=== PATIENT | male | born 1940 | race Caucasian/White ===

== ENCOUNTER → 2019-07-16 11:55 | Outpatient (CLI) | payer MEDICARE, SELFPAY ==
--- NOTE | ~2019-07-16 | XR_ITS ---
EXAMINATION: XR lumbar spine 2-3V DATE: 07/16/2019 12:15 INDICATION: Low back pain. Sciatica. TECHNIQUE: 3 views of lumbar spine were obtained. COMPARISON: None. FINDINGS: There is 9 degrees levocurvature of lumbar spine. There is 3 mm retrolisthesis of L1 on L2 and L2 on L3. Vertebral body heights are normal. There is severely decreased disc height at L1-L2 and L2-L3, mildly decreased disc height at L3-L4, and moderately decreased disc height at L4-L5. There a re endplate osteophytes at all levels. 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 IMPRESSION: 1. Severe lumbar spondylosis. Reviewed, dictated and finalized at location A. [employer]
== END ==
PROVIDERS: PCP Family Medicine; Visit Provider Family Medicine
DX: M54.30 Sciatica, unspecified side (principal); M47.896 Other spondylosis, lumbar region
CPT/HCPCS: 72100

== ENCOUNTER → 2020-03-17 09:53 | Outpatient (CLI) | payer MEDICARE, SELFPAY ==
--- NOTE | ~2020-03-17 | XR_ITS ---
EXAMINATION: XR cervical spine 4-5V EXAM DATE: 03/17/2020 10:09 INDICATION: Cervical pain. Surgery. TECHNIQUE: Cervical spine frontal, lateral, lateral swimmers, and open-mouth odontoid projections. There is no prior study for comparison. FINDINGS: There is cervical anterior and interbody fusion C3-4. There is 3 mm anterolisthesis C4 on C5 and C5 on C6. There is severe multilevel cervical arthropathy. There is moderate loss of the C6-7 disc heights, mild to moderate at C7-T1 and mild at the other nonfused surgical levels. The odontoid process is intact. The lateral masses of C1 line up with C2. Prevertebral soft tissue and pre-dens s pace are within normal limits. IMPRESSION: 1. Intact C3-4 fusion. 2. Severe arthropathy. 3. Subluxations. Reviewed, dictated and finalized at location A.
== END ==
PROVIDERS: PCP Family Medicine; Visit Provider Family Medicine
DX: M54.2 Cervicalgia (principal); Z98.1 Arthrodesis status
CPT/HCPCS: 72050

== ENCOUNTER 2020-10-09 16:36 | IRF | payer MEDICARE, SELFPAY ==
--- NOTE | 2020-10-09 16:39 | ADMGEN ---
This patient, Lorenzo Clark Jr., was admitted to [facility] Room 230-02. Patient/family oriented to hospital policies and general routines including ID bracelet, bed and alarms, visiting hours, pain management, procedures, bathroom and other care routines, personal items, smoking policy, room service/diet, and visiting hours. Information on how to activate the Rapid Response Team has been discussed. Patient/Family are encouraged to report perceived risks to care and to ask questions if they do not understand what they are told or what they should do.
[2020-10-09 17:00] VITALS: BP 121/50; PULSE 76; RESP 18; TEMP 36.9; O2SAT 94; BMI 28.0
--- NOTE | 2020-10-09 17:27 | WPDREHABHP ---
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 Patient has a long standing history of greater than 10 years of ongoing neck and segments reflect a myelomalacia. EMG and nerve conduction studies were consistent with left C5 and C6 radiculopathy. On 10/05/2020 the patient underwent an a Cipro all to C6 posterior lumbar cervical fusion by Dr. Gavin Gamino. Postoperatively patient had complications of hypertension, acute postoperative pain, weakness, headache, BPH, constipation, urinary retention and acute blood loss anemia. Urology was consulted for the urinary to retention and Flomax dose was increased. Patient's surgical drains were removed removed on 10/07/2020. Patient was given a hard cervical collar. No DVT prophylaxis will be ordered per hospitalist at the referring hospital. COVID the patient has not traveled outside the [place] are had contact with someone who is ill that his travel outside the [place] in the past 21 days. Patient has not traveled to an area of the [place] that is experiencing known transmission of the Coronavirus and has not had close personal contact with anyone that has. The patient does not have a fever. Patient is not experiencing lower respiratory illness symptoms. COVID test negative for 10/09/2020. Therapy was initiated at the acute care facility and the patient transferred to us from [facility] from 10-09-2020[] FALLS OR SURGERIES: The patient has had major surgeries in the 100 days prior to admission . Patient underwent cervical surgery a septal to C6 posterior lumbar cervical fusion. They had [no] falls in the past year. They had [no] falls with injury in the past year. PRIOR LEVEL OF FUNCTION: Eating was [INDEPENDENT] Oral Care was [INDEPENDENT] Toileting Hygiene was [INDEPENDENT] Shower/Bathing was [INDEPENDENT] Upper Body Dressing was [INDEPENDENT] Lower Body Dressing was [INDEPENDENT] Donning/Fair Lawn Footwear was [INDEPENDENT] Rolling Left and Right was [INDEPENDENT] Sit to Lying was [INDEPENDENT] Lying to Sitting was [INDEPENDENT] Sit to Stand was [INDEPENDENT] Bed to Chair Transfers was [INDEPENDENT] Toilet Transfers was [INDEPENDENT] Walking was [INDEPENDENT] [>500 feet] with [NO DEVICE] Wheelchair Mobility was [NOT APPLICABLE PRIOR TO ADMISSION] Stairs were [INDEPENDENT] CURRENT LEVEL OF FUNCTION: Eating was partial to moderate assist Oral Care was supervision or touching assist Toileting Hygiene was partial to moderate assistance Shower/Bathing was partial to moderate assistance Upper Body Dressing was partial to moderate assistance Lower Body Dressing was partial to moderate ass Donning/Fair Lawn Footwear was ist partial to moderate assist Rolling Left and Right was supervision or touching Sit to Lying was assistance supervision or touching assistance Lying to Sitting was Flick to moderate assist Sit to Stand was partial to moderate assist Bed to Chair Transfers were partial to moderate Toilet Transfers were assist partial to moderate veinta Walking was t 150 ft with a roller walker with partial to moderate assistance Wheelchair Mobility was not tested Stairs were not GOALS: Our therapists will evaluate the patient and establish the goals. However, upon pre-admission screening, the expected goals were to be [INDEPENDENT] with self-care, [I
[2020-10-09] MEDS: GABAPENTIN 300 MG CAPSULE 900 MG PO (18:33)
[2020-10-09] MEDS: BETHANECHOL CHLORIDE 10 MG TABLET 30 MG PO (18:33)
[2020-10-09] MEDS: HYDROcodone/acetaminophen (*CRX) 5-325 MG TABLET 1 TAB PO ×2 (18:34→23:42)
[2020-10-09 18:39] VITALS: PULSE 76; RESP 18; O2SAT 94
[2020-10-09 20:00] VITALS: PULSE 70; RESP 18; O2SAT 99
[2020-10-09] MEDS: SENNA/DOCUSATE SODIUM TABLET 1 TAB PO (20:00)
[2020-10-09] MEDS: CYCLOBENZAPRINE HCL 10 MG TABLET PO (20:01)
[2020-10-09] MEDS: TAMSULOSIN HCL 0.4 MG CAPSULE 0.8 MG PO (20:01)
[2020-10-09] MEDS: ROSUVASTATIN 10 MG TABLET PO (20:01)
[2020-10-09 20:18] VITALS: BP 113/52; PULSE 70; RESP 18; TEMP 37.4; O2SAT 99
--- NOTE | 2020-10-10 04:27 | PC.NURSE ---
notified provider of the patient's increasing temperature. given no new orders at this time continuing to monitor.
[2020-10-10 04:59] LABS: Basophils Absolute Auto 0.1 K/mm3 (0.0-0.1); Basophils Percent Auto 0.6 % (0.2-1.2); Eosinophils Absolute Auto 0.2 K/mm3 (0-0.3); Eosinophils Percent Auto 2.2 % (0-4.4); Hematocrit 32.2 % (42.0-52.0); Hemoglobin 11.3 g/dL (14.0-18.0); Immature Granulocyte Absolute 0.03 K/mm3 (0.00-0.031); Immature Granulocyte Percent A 0.4 % (0-0.5); Lymphocytes Absolute Auto 1.14 K/mm3 (0.9-3.2); Lymphocytes Percent Auto 14.8 % (18.3-44.2); Mean Corpuscular HGB Conc 35.1 g/dl (32-36); Mean Corpuscular Hemoglobin 31.7 pg (26-34); Mean Corpuscular Volume 90.4 fl (80-100); Mean Platelet Volume 8.5 fl (7.4-10.4); Monocytes Absolute Auto 0.6 K/mm3 (0.1-0.6); Monocytes Percent Auto 8.1 % (2.6-8.5); Neutrophils Absolute Auto 5.7 K/mm3 (1.3-6.7); Neutrophils Percent Auto 73.9 % (45.5-73.1); Platelet Count Result 265 k/mm3 (150-375); Red Blood Count 3.56 M/mm3 (4.6-6.20); Red Cell Distribution Width 12.4 % (11.5-14.5); White Blood Count 7.7 K/mm3 (4.5-10.0)
[2020-10-10 05:00] VITALS: BP 137/57; PULSE 61; RESP 18; TEMP 37.1; O2SAT 96
[2020-10-10 05:17] LABS: Alanine Aminotransferase 27 U/L (4-50); Albumin Level 3.4 g/dL (3.5-5.1); Alkaline Phosphatase 68 U/L (38-126); Anion Gap 3 mmol/L (8-16); Aspartate Amino Transferase 58 U/L (17-59); Bilirubin,Total 0.2 mg/dL (0.2-1.3); Blood Urea Nitrogen 17 mg/dL (9-20); Calcium 7.9 mg/dL (8.4-10.2); Carbon Dioxide 32 mmol/L (22-30); Chloride 100 mmol/L (98-107); Estimated CRCL calculation 54 ml/min; Estimated Glomerular Filt Rate > 60; Glucose 156 mg/dL (75-110); Potassium 4.3 mmol/L (3.4-5.0); Sodium 135 mmol/L (137-145)
--- NOTE | 2020-10-10 07:23 | PC.NURSE ---
pt complains of severe pain throughout his body, notified the doctor. An order of PRN Ultram was prescribed. called pharmacy for clarification on Ultram interaction with tramadol. Pharmacist Royal told to continue with order and to monitor pt for side effects.
[2020-10-10] MEDS: MULTIVITAMINS THERAPEUTIC TAB (*BKC) 1 TABLET PO (08:20)
[2020-10-10] MEDS: HYDROcodone/acetaminophen (*CRX) 5-325 MG TABLET 2 TAB PO ×3 (08:20→21:34)
[2020-10-10] MEDS: GABAPENTIN 300 MG CAPSULE 900 MG PO ×3 (08:21→17:13)
[2020-10-10] MEDS: CYCLOBENZAPRINE HCL 10 MG TABLET PO ×3 (08:22→20:17)
[2020-10-10] MEDS: FENOFIBRATE 160 MG TABLET PO (08:22)
[2020-10-10] MEDS: SENNA/DOCUSATE SODIUM TABLET 1 TAB PO ×2 (08:22→20:17)
[2020-10-10] MEDS: FINASTERIDE 5 MG TABLET PO (08:23)
[2020-10-10] MEDS: allopurinoL 300 MG TABLET PO (08:23)
[2020-10-10] MEDS: PANTOPRAZOLE 40 MG TABLET PO ×2 (08:23→17:13)
[2020-10-10] MEDS: BETHANECHOL CHLORIDE 10 MG TABLET 30 MG PO ×3 (08:23→17:13)
--- NOTE | 2020-10-10 09:01 | WPDNEURORHBP ---
Subjective Date/time seen: 10/10/20 09:01 Interval history: Cervical cord compression with spinal cord compression The patient is a 80-year-old male with past medical history of anxiety, arthritis, cervical stenosis of the spinal canal, gout, hyperlipidemia, hypertension, and urinary retention who presented to [facility] on 10/05/2020 with chronic neck pain. Patient has a long standing history of greater than 10 years of ongoing neck and segments reflect a myelomalacia. EMG and nerve conduction studies were consistent with left C5 and C6 radiculopathy. On 10/05/2020 the patient underwent an occipital to C6 posterior lumbar cervical fusion by Dr. Gavin Gamino. Postoperatively patient had complications of hypertension, acute postoperative pain, weakness, headache, BPH, constipation, urinary retention and acute blood loss anemia. Urology was consulted for the urinary retention and Flomax dose was increased. Patient's surgical drains were removed on 10/07/2020. Patient was given a hard cervical collar and a bone stimulator No DVT prophylaxis will be ordered per hospitalist at the referring hospital. Patient is seen in bed this morning complaining of severe pain. Patient tends to flail his arms and legs during these events. I have instructed the patient that this movement will only aggravate his pain. Patient needs maximum verbal cues for deep breathing activities and relaxation techniques. Patient will be given [place] 2 tabs of 5/325 with Flexeril 10 mg before a.m. and p.m. therapies and at bedtime.Patient states that he wishes he would . It is noted that he has made statements like this prior to his surgery. When examiner has asked that if he wishes to harm himself he states NO. He would just like the pain under better control. is present on the phone and just states that she hopes the pain will decrease. Review of Systems Review of Systems: All systems reviewed & are unremarkable except as noted in HPI and below Exam Narrative: Exam Narrative: Patient is seen in bed and appears to be anxious and in pain. Anxiety appears high with moaning and flailing of arms. Patient needs max assist to calm down. At times, patient has flailing of the arms and legs. Patient cannot accurately describe what is happening. It would appear to examiner that these movements would only exacerbate the pain. is on the phone. Patient may be experiencing spasm which elicits pain. Head is normocephalic there are eduardo present to the left temporal area. Extraocular muscles are intact. Neck is within a hard collar. Collar was not removed at time of exam. Heart rhythm is regular. Lungs are clear to auscultation. Abdomen is soft nontender . Patient is able to move BUEs with 4/5 strength except proximal shoulder limited ROM is noted. Fine motor dexterity is limited. Sensation is intact to proprioception and light touch. Bilateral lower extremity strength are 5/5. Deep tendon reflexes are brisk throughout. After leaving the room with patient in tears, I have returned 10 minutes later to his room to find the patient jovial and calm without any suggestions of being in pain. Objective Data Vital Signs Vital Signs: Vital Signs - 24 hr 10/09/20 17:00 10/09/20 18:39 10/09/20 20:00 Temperature 36.9 C Pulse Rate 76 76 70 Respiratory Rate 18 18 18 Blood Pressure 121/50 L Pulse Oximetry 94 94 99 10/09/20 20:18 10/10/20 05:00 Temperature 37.4 C 37.1 C Pulse Rate 70 61 Respiratory Rate 18 18 Blood Pressure 113/52 L 137/57 L Pulse Oximetry 99 96 Intake/Output Intake/Output: Intake & Output 10/07/20 10/08/20 10/09/20 10/10/20 23:59 23:59 23:59 23:59 Output Total 425 Balance -425 Meds/Results Medications: Active Medications Generic Name Dose Route Start Last Admin Trade Name Freq PRN Reason Stop Dose Admin Hydrocodone Bitart/Acetaminophen 1 tab 10/09/20 17:18 10/09/20 23:42 Hydrocodone/Abel
[2020-10-10] MEDS: lisinopriL 2.5 MG TABLET PO (12:26)
[2020-10-10 14:00] VITALS: BP 139/63; PULSE 64; RESP 20; TEMP 36.7; O2SAT 98
[2020-10-10] MEDS: TAMSULOSIN HCL 0.4 MG CAPSULE 0.8 MG PO (20:17)
[2020-10-10] MEDS: ROSUVASTATIN 10 MG TABLET PO (20:17)
[2020-10-10 20:19] VITALS: BP 123/45; PULSE 57; RESP 22; TEMP 37; O2SAT 99
[2020-10-11] MEDS: HYDROcodone/acetaminophen (*CRX) 5-325 MG TABLET 1 TAB PO (03:33)
[2020-10-11 05:32] VITALS: BP 130/43; PULSE 54; RESP 20; TEMP 36.6; O2SAT 98
[2020-10-11] MEDS: HYDROcodone/acetaminophen (*CRX) 5-325 MG TABLET 2 TAB PO ×3 (08:40→20:26)
[2020-10-11] MEDS: PANTOPRAZOLE 40 MG TABLET PO ×2 (08:41→17:01)
[2020-10-11] MEDS: CYCLOBENZAPRINE HCL 10 MG TABLET PO ×3 (08:41→20:27)
[2020-10-11] MEDS: MULTIVITAMINS THERAPEUTIC TAB (*BKC) 1 TABLET PO (08:41)
[2020-10-11] MEDS: FINASTERIDE 5 MG TABLET PO (08:41)
[2020-10-11] MEDS: BETHANECHOL CHLORIDE 10 MG TABLET 30 MG PO ×3 (08:41→17:01)
[2020-10-11] MEDS: allopurinoL 300 MG TABLET PO (08:41)
[2020-10-11] MEDS: FENOFIBRATE 160 MG TABLET PO (08:41)
[2020-10-11] MEDS: GABAPENTIN 300 MG CAPSULE 900 MG PO ×3 (08:41→17:01)
[2020-10-11] MEDS: SENNA/DOCUSATE SODIUM TABLET 1 TAB PO ×2 (08:41→20:27)
--- NOTE | 2020-10-11 10:43 | WPDNEURORHBP ---
Subjective Date/time seen: 10/11/20 10:43 Interval history: Cervical cord compression with spinal cord compression The patient is a 80-year-old male with past medical history of anxiety, arthritis, cervical stenosis of the spinal canal, gout, hyperlipidemia, hypertension, and urinary retention who presented to [facility] on 10/05/2020 with chronic neck pain. Patient has a long standing history of greater than 10 years of ongoing neck and segments reflect a myelomalacia. EMG and nerve conduction studies were consistent with left C5 and C6 radiculopathy. On 10/05/2020 the patient underwent an occipital to C6 posterior lumbar cervical fusion by Dr. Gavin Gamino. Postoperatively patient had complications of hypertension, acute postoperative pain, weakness, headache, BPH, constipation, urinary retention and acute blood loss anemia. Urology was consulted for the urinary retention and Flomax dose was increased. Patient's surgical drains were removed on 10/07/2020. Patient was given a hard cervical collar and a bone stimulator Patient is more calm but complains of severe pain. Patient is seen with OT performing relaxation techniques. Patient still has occasional screaming out in pain but then can relax with maximal verbal cues. Pain coping skills are poor Review of Systems Review of Systems: All systems reviewed & are unremarkable except as noted in HPI and below Functional Status Ambulation Ability Ability to Ambulate 10 Feet: Contact Guard Ability to Ambulate 50 Feet With 2 Turns: Minimum Assistance X 1 Ability to Ambulate 150 Feet: Minimum Assistance X 1 Ambulation Assistive Devices: Walker, Wheeled Exam Narrative: Exam Narrative: Patient seen lying flat in bed. Patien complains of pain and requires relaxation techniques to calm himself. Head is normocephalic there are eduardo present to the left temporal area. Extraocular muscles are intact. Neck is within a hard collar. Collar was not removed at time of exam. Heart rhythm is regular. Lungs are clear to auscultation. Abdomen is soft nontender . Patient is able to move BUEs with 4/5 strength except proximal shoulder limited ROM is noted. Fine motor dexterity is limited. Sensation is intact to proprioception and light touch. Bilateral lower extremity strength are 5/5. Deep tendon reflexes are brisk throughout. Gait is at min assist. Objective Data Vital Signs Vital Signs: Vital Signs - 24 hr 10/10/20 14:00 10/10/20 20:19 10/11/20 05:32 Temperature 36.7 C 37.0 C 36.6 C Pulse Rate 64 57 L 54 L Respiratory Rate 20 22 H 20 Blood Pressure 139/63 123/45 L 130/43 L Pulse Oximetry 98 99 98 Intake/Output Intake/Output: Intake & Output 10/08/20 10/09/20 10/10/20 10/11/20 23:59 23:59 23:59 23:59 Intake Total 840 Output Total 425 Balance 415 Meds/Results Medications: Active Medications Generic Name Dose Route Start Last Admin Trade Name Freq PRN Reason Stop Dose Admin Hydrocodone Bitart/Acetaminophen 1 tab 10/09/20 17:18 10/11/20 03:33 Hydrocodone/Acetaminophen (*Crx) 5-325 Mg Tablet PO 1 tab Q4H PRN Administration Pain 7-10 Hydrocodone Bitart/Acetaminophen 2 tab 10/10/20 08:00 10/11/20 08:40 Hydrocodone/Acetaminophen (*Crx) 5-325 Mg Tablet PO 2 tab 0800,1200 HILTON Administration Hydrocodone Bitart/Acetaminophen 2 tab 10/10/20 21:00 10/10/20 21:34 Hydrocodone/Acetaminophen (*Crx) 5-325 Mg Tablet PO 2 tab BEDTIME HILTON Administration Allopurinol 300 mg 10/10/20 09:00 10/11/20 08:41 Allopurinol 300 Mg Tablet PO 300 mg DAILY HILTON Administration Artificial Tears 1 drop 10/09/20 17:18 Artificial Tears Op Soln 15 Ml Bottle EACH EYE TID PRN Dry Eye(S) Bethanechol Chloride 30 mg 10/09/20 17:25 10/11/20 08:41 Bethanechol Chloride 10 Mg Tablet PO 30 mg TID HILTON Administration Cyclobenzaprine HCl 10 mg 10/09/20 21:00 10/10/20 20:17 Cyclobenzaprine Hcl 10 Mg Tablet
[2020-10-11] MEDS: lisinopriL 2.5 MG TABLET PO (12:05)
[2020-10-11 14:00] VITALS: BP 131/55; PULSE 64; RESP 18; TEMP 37.1; O2SAT 96
[2020-10-11] MEDS: TAMSULOSIN HCL 0.4 MG CAPSULE 0.8 MG PO (20:25)
[2020-10-11] MEDS: ROSUVASTATIN 10 MG TABLET PO (20:26)
[2020-10-11 20:50] VITALS: PULSE 54; RESP 16; O2SAT 97
[2020-10-11 22:00] VITALS: BP 112/56; PULSE 54; RESP 16; TEMP 36.3; O2SAT 97
[2020-10-12] MEDS: HYDROcodone/acetaminophen (*CRX) 5-325 MG TABLET 1 TAB PO (04:15)
[2020-10-12 06:00] VITALS: BP 122/60; PULSE 52; RESP 16; TEMP 36.3; O2SAT 96
[2020-10-12] MEDS: PANTOPRAZOLE 40 MG TABLET PO ×2 (08:54→17:58)
[2020-10-12] MEDS: MULTIVITAMINS THERAPEUTIC TAB (*BKC) 1 TABLET PO (08:54)
[2020-10-12] MEDS: allopurinoL 300 MG TABLET PO (08:54)
[2020-10-12] MEDS: GABAPENTIN 300 MG CAPSULE 900 MG PO ×3 (08:54→18:00)
[2020-10-12] MEDS: FENOFIBRATE 160 MG TABLET PO (08:54)
[2020-10-12] MEDS: CYCLOBENZAPRINE HCL 10 MG TABLET PO ×3 (08:54→20:53)
[2020-10-12] MEDS: BETHANECHOL CHLORIDE 10 MG TABLET 30 MG PO ×3 (08:54→18:00)
[2020-10-12] MEDS: HYDROcodone/acetaminophen (*CRX) 5-325 MG TABLET 2 TAB PO ×3 (08:54→20:53)
[2020-10-12] MEDS: SENNA/DOCUSATE SODIUM TABLET 1 TAB PO ×2 (08:54→20:53)
[2020-10-12] MEDS: FINASTERIDE 5 MG TABLET PO (08:55)
[2020-10-12 09:35] VITALS: BP 118/54; PULSE 63; O2SAT 98
--- NOTE | 2020-10-12 09:50 | RPD ---
INDIVIDUALIZED PLAN OF CARE FOR Lorenzo Clark Jr. Brief Synthesis of Pre-Admission Screen, Post-Admission Evaluation and Therapy Evaluations: The patient presents to rehab with Myelomalacia of cervical cord with spinal cord compression. Comorbidities include radiculopathy cervical region, spinal stenosis of cervical region, foraminal stenosis of cervical region, degenerative disc disease of cervical spine, spinal cord compression, myelomalacia of cervical cord, cervicalgia, anxiety, arthritis, hyperlipidemia, and HTN. The complexity of the patient's medical management, nursing, and therapy needs require an inpatient rehab hospital stay with a physician-led interdisciplinary team approach. The patient?s needs will be best met in an intensive program vs. at a lower level of care. The patient requires physician services for medical oversight, management of post-op complications (urinary retention, constipation, acute postoperative pain, acute blood loss anemia) in setting of present comorbidities, and pain management. The patient requires nursing services for anticoagulation therapy,diabetes training, DVT prophylactics, possible IV administration, infection protection, medication management and education, pressure relief, and wound care. Deficits include: ADLs, Balance, Endurance, Family Training/Education, Mobility, Pain Management, ROM, Safety, Strength, and Transfers. Ornamental [employer] Worker/Case Management for: Discharge Planning and Patient/Family Counseling Physical Therapy: 5 days per week for 90 minutes. Treatments may include: Therapeutic Exercise, Gait Training, Neuromuscular Re-education, Transfer Training, Community Reintegration, Bed Mobility, Patient/Family Education, Wheelchair Mobility Group Therapy/Concurrent Therapy Rationales: -Improve attention span during functional activities in a distracted environment. -Enhance problem solving and/or adequate judgment skills during functional activities in a distracted environment. -Promote increased safety awareness in a distracted environment to reduce fall risk with functional tasks, transfers, and ambulation to allow a more safe, self-sufficient return to the home environment. -Improve dynamic balance skills to promote safety and independence with functional activities in a distracted environment for maximum gain. Occupational Therapy: 5 days per week for 90 minutes. Treatments may include: Therapeutic Exercise, Therapeutic Activity, Cognitive Training, Self-Care Transfer Training, Community Reintegration, Home Management, Patient/Family Education, Wheelchair Mobility Training, Energy Conservation Training Group Therapy/Concurrent Therapy Rationales: -Allow therapist to observe and teach generalization and carry-over of skills learned in individual therapy. -Enhance problem solving and sequencing skills during therapeutic activities in a distracted environment. -Promote increased safety awareness in a realistic setting to reduce fall risk with functional tasks due to visual and verbal distractions. -Increase functional level with ADLs, ADL transfers and use of adaptive equipment through therapeutic activities with others while promoting safety to allow a more safe, self-sufficient return home. Medical Prognosis: Good Anticipated Length of Stay: 10 days Rehab Goals: Eating Goal: 06-Independent Oral Hygiene Goal: 06-Independent Toileting Hygiene Goal: 06-Independent Shower/Bathe Self Goal: 05-Setup or Clean Up Assistance Upper Body Dressing Goal: 06-Independent Lower Body Dressing Goal: 06-Independent Putting On/Taking Off Footwear Goal: 06-Independent Rolling Left and Right Goal: 06-Independent Sit to Lying Goal: 06-Independent Lying to Sitting on Side of Bed Goal: 06-Independent Sit to Stand Goal: 06-Independent Chair/[id number] Transfer Goal: 06-Independent Toilet Transfer Goal: 06-Independent Car Transfer Goal: 06-Independent Walk 10' Goal: 06-Independent Walk 50' with Two Turns Goal: 06-Independ
--- NOTE | 2020-10-12 10:54 | WPDNEURORHBP ---
Subjective Date/time seen: 10/12/20 10:54 Interval history: Cervical cord compression with spinal cord compression The patient is a 80-year-old male with past medical history of anxiety, arthritis, cervical stenosis of the spinal canal, gout, hyperlipidemia, hypertension, and urinary retention who presented to [facility] on 10/05/2020 with chronic neck pain. Patient has a long standing history of greater than 10 years of ongoing neck and segments reflect a myelomalacia. EMG and nerve conduction studies were consistent with left C5 and C6 radiculopathy. On 10/05/2020 the patient underwent an occipital to C6 posterior lumbar cervical fusion by Dr. Gavin Gamino. Postoperatively patient had complications of hypertension, acute postoperative pain, weakness, headache, BPH, constipation, urinary retention and acute blood loss anemia. Urology was consulted for the urinary retention and Flomax dose was increased. Patient's surgical drains were removed on 10/07/2020. Patient was given a hard cervical collar and a bone stimulator Patient is more calm today. He has less voicing of severe pain. He still needs max assist to calm down and continues to thrash arms and legs when pain occurs. Patient tends to be impulsive to perform transfers. He springs out of chair instead of slowly rising. Review of Systems Review of Systems: All systems reviewed & are unremarkable except as noted in HPI and below Functional Status Ambulation Ability Ability to Ambulate 10 Feet: Contact Guard Ability to Ambulate 50 Feet With 2 Turns: Contact Guard Ability to Ambulate 150 Feet: Minimum Assistance X 1 Ambulation Assistive Devices: Walker, Wheeled Exam Narrative: Exam Narrative: Patient seen lying flat in bed. Patien complains of pain and requires relaxation techniques to calm himself. Head is normocephalic there are eduardo present to the left temporal area. Extraocular muscles are intact. Neck is within a hard collar. Collar was not removed at time of exam. Heart rhythm is regular. Lungs are clear to auscultation. Abdomen is soft nontender . Patient is able to move BUEs with 4/5 strength except proximal shoulder limited ROM is noted. Fine motor dexterity is limited. Sensation is intact to proprioception and light touch. Bilateral lower extremity strength are 5/5. Deep tendon reflexes are brisk throughout. Gait is at min assist. Objective Data Vital Signs Vital Signs: Vital Signs - 24 hr 10/11/20 14:00 10/11/20 20:50 10/11/20 22:00 Temperature 37.1 C 36.3 C L Pulse Rate 64 54 L 54 L Respiratory Rate 18 16 16 Blood Pressure 131/55 L 112/56 L Pulse Oximetry 96 97 97 10/12/20 06:00 10/12/20 09:35 Temperature 36.3 C L Pulse Rate 52 L 63 Respiratory Rate 16 Blood Pressure 122/60 118/54 L Pulse Oximetry 96 98 Intake/Output Intake/Output: Intake & Output 10/09/20 10/10/20 10/11/20 10/12/20 23:59 23:59 23:59 23:59 Intake Total 840 960 Output Total 425 Balance 415 960 Meds/Results Medications: Active Medications Generic Name Dose Route Start Last Admin Trade Name Freq PRN Reason Stop Dose Admin Hydrocodone Bitart/Acetaminophen 1 tab 10/09/20 17:18 10/12/20 04:15 Hydrocodone/Acetaminophen (*Crx) 5-325 Mg Tablet PO 1 tab Q4H PRN Administration Pain 7-10 Hydrocodone Bitart/Acetaminophen 2 tab 10/10/20 08:00 10/12/20 08:54 Hydrocodone/Acetaminophen (*Crx) 5-325 Mg Tablet PO 2 tab 0800,1200 HILTON Administration Hydrocodone Bitart/Acetaminophen 2 tab 10/10/20 21:00 10/11/20 20:26 Hydrocodone/Acetaminophen (*Crx) 5-325 Mg Tablet PO 2 tab BEDTIME HILTON Administration Allopurinol 300 mg 10/10/20 09:00 10/12/20 08:54 Allopurinol 300 Mg Tablet PO 300 mg DAILY HILTON Administration Artificial Tears 1 drop 10/09/20 17:18 Artificial Tears Op Soln 15 Ml Bottle EACH EYE TID PRN Dry Eye(S) Bethanechol Chloride 30 mg 10/09/20 17:25 10/12/20 08:54
[2020-10-12] MEDS: lisinopriL 2.5 MG TABLET PO (12:09)
[2020-10-12 12:51] VITALS: BMI 28.0
[2020-10-12 14:00] VITALS: BP 115/44; PULSE 66; RESP 18; TEMP 36.5; O2SAT 97
--- NOTE | 2020-10-12 15:18 | PCPTNOTE ---
Lorenzo Clark Jr. was evaluated for a wheeled walker on 10/12/2020 by this physical therapist. The wheeled walker will resolve patient's mobility limitations and will be used for ADL's within the home. The patient can safely use the wheeled walker. ?The wheeled walker will resolve the patient?s mobility deficits, including balance deficits and cervical precautions.
[2020-10-12] MEDS: polyethylene glycoL 3350 17 GM POWD.PACK PO (17:59)
[2020-10-12] MEDS: ROSUVASTATIN 10 MG TABLET PO (20:53)
[2020-10-12] MEDS: TAMSULOSIN HCL 0.4 MG CAPSULE 0.8 MG PO (20:53)
[2020-10-12 21:51] VITALS: BP 121/72; PULSE 79; RESP 16; TEMP 36.6; O2SAT 97
[2020-10-13 06:00] VITALS: BP 139/61; PULSE 47; RESP 16; TEMP 36.2; O2SAT 96
[2020-10-13] MEDS: CYCLOBENZAPRINE HCL 10 MG TABLET PO ×3 (08:03→22:35)
[2020-10-13] MEDS: HYDROcodone/acetaminophen (*CRX) 5-325 MG TABLET 2 TAB PO ×3 (08:03→21:42)
[2020-10-13] MEDS: FENOFIBRATE 160 MG TABLET PO (08:04)
[2020-10-13] MEDS: MULTIVITAMINS THERAPEUTIC TAB (*BKC) 1 TABLET PO (08:04)
[2020-10-13] MEDS: polyethylene glycoL 3350 17 GM POWD.PACK PO (08:04)
[2020-10-13] MEDS: SENNA/DOCUSATE SODIUM TABLET 1 TAB PO ×2 (08:04→21:42)
[2020-10-13] MEDS: allopurinoL 300 MG TABLET PO (08:04)
[2020-10-13] MEDS: FINASTERIDE 5 MG TABLET PO (08:04)
[2020-10-13] MEDS: GABAPENTIN 300 MG CAPSULE 900 MG PO ×3 (08:04→18:15)
[2020-10-13] MEDS: BETHANECHOL CHLORIDE 10 MG TABLET 30 MG PO ×3 (08:04→18:15)
[2020-10-13] MEDS: PANTOPRAZOLE 40 MG TABLET PO ×2 (08:04→18:15)
[2020-10-13] MEDS: lisinopriL 2.5 MG TABLET PO (13:10)
[2020-10-13 14:00] VITALS: BP 135/52; PULSE 64; RESP 18; TEMP 36.3; O2SAT 99
--- NOTE | 2020-10-13 15:21 | WPDNEURORHBP ---
Subjective Date/time seen: 10/13/20 15:21 Interval history: Cervical cord compression with spinal cord compression The patient is a 80-year-old male with past medical history of anxiety, arthritis, cervical stenosis of the spinal canal, gout, hyperlipidemia, hypertension, and urinary retention who presented to [facility] on 10/05/2020 with chronic neck pain. Patient has a long standing history of greater than 10 years of ongoing neck and segments reflect a myelomalacia. EMG and nerve conduction studies were consistent with left C5 and C6 radiculopathy. On 10/05/2020 the patient underwent an occipital to C6 posterior lumbar cervical fusion by Dr. Gavin Gamino. Postoperatively patient had complications of hypertension, acute postoperative pain, weakness, headache, BPH, constipation, urinary retention and acute blood loss anemia. Urology was consulted for the urinary retention and Flomax dose was increased. Patient's surgical drains were removed on 10/07/2020. Patient was given a hard cervical collar and a bone stimulator Patient was seen during physical therapy ambulating in the [place]. Patient's overall demeanor is much calmer. Patient is pleased with his overall progress. Patient still requires verbal encouragement and verbal safety awareness during activities. Review of Systems Review of Systems: All systems reviewed & are unremarkable except as noted in HPI and below Functional Status Ambulation Ability Ability to Ambulate 10 Feet: Contact Guard Ability to Ambulate 50 Feet With 2 Turns: Contact Guard Ability to Ambulate 150 Feet: Contact Guard Ambulation Assistive Devices: Walker, Wheeled Transfers Ability Ability to Transfer In/Out of Chair: Contact Guard Exam Narrative: Exam Narrative: Head is normocephalic there are eduardo present to the left temporal area. Extraocular muscles are intact. Neck is within a hard collar. Heart rhythm is regular. Lungs are clear to auscultation. Abdomen is soft nontender . Patient is able to move BUEs with 4/5 strength except proximal shoulder limited ROM is noted. Fine motor dexterity is limited. Sensation is intact to proprioception and light touch. Bilateral lower extremity strength are 5/5. Deep tendon reflexes are brisk throughout. Objective Data Vital Signs Vital Signs: Vital Signs - 24 hr 10/12/20 21:51 10/13/20 06:00 10/13/20 14:00 Temperature 36.6 C 36.2 C L 36.3 C L Pulse Rate 79 47 L 64 Respiratory Rate 16 16 18 Blood Pressure 121/72 139/61 135/52 L Pulse Oximetry 97 96 99 Intake/Output Intake/Output: Intake & Output 10/10/20 10/11/20 10/12/20 10/13/20 23:59 23:59 23:59 23:59 Intake Total 840 960 480 120 Output Total 425 Balance 415 960 480 120 Meds/Results Medications: Active Medications Generic Name Dose Route Start Last Admin Trade Name Freq PRN Reason Stop Dose Admin Hydrocodone Bitart/Acetaminophen 1 tab 10/09/20 17:18 10/12/20 04:15 Hydrocodone/Acetaminophen (*Crx) 5-325 Mg Tablet PO 1 tab Q4H PRN Administration Pain 7-10 Hydrocodone Bitart/Acetaminophen 2 tab 10/10/20 08:00 10/13/20 11:57 Hydrocodone/Acetaminophen (*Crx) 5-325 Mg Tablet PO 2 tab 0800,1200 [facility] Administration Hydrocodone Bitart/Acetaminophen 2 tab 10/10/20 21:00 10/12/20 20:53 Hydrocodone/Acetaminophen (*Crx) 5-325 Mg Tablet PO 2 tab BEDTIME [facility] Administration Allopurinol 300 mg 10/10/20 09:00 10/13/20 08:04 Allopurinol 300 Mg Tablet PO 300 mg DAILY [facility] Administration Artificial Tears 1 drop 10/09/20 17:18 Artificial Tears Op Soln 15 Ml Bottle EACH EYE TID PRN Dry Eye(S) Bethanechol Chloride 30 mg 10/09/20 17:25 10/13/20 13:10 Bethanechol Chloride 10 Mg Tablet PO 30 mg TID [facility] Administration Cyclobenzaprine HCl 10 mg 10/09/20 21:00 10/12/20 20:53 Cyclobenzaprine Hcl 10 Mg Tablet PO 10 mg HS [facility] Administration Cyclobenzaprine HCl 5 mg 10/09/20 17:43
[2020-10-13] MEDS: ROSUVASTATIN 10 MG TABLET PO (21:45)
[2020-10-13] MEDS: TAMSULOSIN HCL 0.4 MG CAPSULE 0.8 MG PO (21:45)
[2020-10-13 21:54] VITALS: BP 136/46; PULSE 58; RESP 16; TEMP 36.6; O2SAT 99
[2020-10-14 06:00] VITALS: BP 114/57; PULSE 55; RESP 16; TEMP 36.6; O2SAT 100
[2020-10-14 08:00] VITALS: PULSE 55; RESP 16; O2SAT 100
[2020-10-14] MEDS: FENOFIBRATE 160 MG TABLET PO (08:49)
[2020-10-14] MEDS: BETHANECHOL CHLORIDE 10 MG TABLET 30 MG PO ×3 (08:50→17:03)
[2020-10-14] MEDS: FINASTERIDE 5 MG TABLET PO (08:50)
[2020-10-14] MEDS: GABAPENTIN 300 MG CAPSULE 900 MG PO ×3 (08:50→17:03)
[2020-10-14] MEDS: PANTOPRAZOLE 40 MG TABLET PO ×2 (08:51→17:02)
[2020-10-14] MEDS: MULTIVITAMINS THERAPEUTIC TAB (*BKC) 1 TABLET PO (08:51)
[2020-10-14] MEDS: CYCLOBENZAPRINE HCL 10 MG TABLET PO ×3 (08:51→22:04)
[2020-10-14] MEDS: allopurinoL 300 MG TABLET PO (08:52)
[2020-10-14] MEDS: HYDROcodone/acetaminophen (*CRX) 5-325 MG TABLET 2 TAB PO ×3 (08:55→22:04)
--- NOTE | 2020-10-14 09:57 | WPDNEURORHBP ---
Subjective Date/time seen: 10/14/20 09:57 Interval history: Cervical cord compression with spinal cord compression The patient is a 80-year-old male with past medical history of anxiety, arthritis, cervical stenosis of the spinal canal, gout, hyperlipidemia, hypertension, and urinary retention who presented to [facility] on 10/05/2020 with chronic neck pain. Patient has a long standing history of greater than 10 years of ongoing neck and segments reflect a myelomalacia. EMG and nerve conduction studies were consistent with left C5 and C6 radiculopathy. On 10/05/2020 the patient underwent an occipital to C6 posterior lumbar cervical fusion by Dr. Gavin Gamino. Postoperatively patient had complications of hypertension, acute postoperative pain, weakness, headache, BPH, constipation, urinary retention and acute blood loss anemia. Urology was consulted for the urinary retention and Flomax dose was increased. Patient's surgical drains were removed on 10/07/2020. Patient was given a hard cervical collar and a bone stimulator Patient is seen lying in bed after breakfast. Patient's overall mood and confidence is much improved. Patient is receptive to decreasing pain meds.. Review of Systems Review of Systems: All systems reviewed & are unremarkable except as noted in HPI and below Functional Status Ambulation Ability Ability to Ambulate 10 Feet: Contact Guard Ability to Ambulate 50 Feet With 2 Turns: Contact Guard Ability to Ambulate 150 Feet: Contact Guard Ambulation Assistive Devices: Walker, Wheeled Transfers Ability Ability to Transfer In/Out of Chair: Contact Guard Exam Narrative: Exam Narrative: Head is normocephalic .Hard collar in place.. Extraocular muscles are intact. Heart rhythm is regular. Lungs are clear to auscultation. Abdomen is soft nontender . Patient is able to move BUEs with 4/5 strength except proximal shoulder limited ROM is noted. Fine motor dexterity is limited. Sensation is intact to proprioception and light touch. Bilateral lower extremity strength are 5/5. Deep tendon reflexes are brisk throughout. Objective Data Vital Signs Vital Signs: Vital Signs - 24 hr 10/13/20 14:00 10/13/20 21:54 10/14/20 06:00 Temperature 36.3 C L 36.6 C 36.6 C Pulse Rate 64 58 L 55 L Respiratory Rate 18 16 16 Blood Pressure 135/52 L 136/46 L 114/57 L Pulse Oximetry 99 99 100 Intake/Output Intake/Output: Intake & Output 10/11/20 10/12/20 10/13/20 10/14/20 23:59 23:59 23:59 23:59 Intake Total 960 480 240 240 Balance 960 480 240 240 Meds/Results Medications: Active Medications Generic Name Dose Route Start Last Admin Trade Name Freq PRN Reason Stop Dose Admin Hydrocodone Bitart/Acetaminophen 1 tab 10/09/20 17:18 10/12/20 04:15 Hydrocodone/Acetaminophen (*Crx) 5-325 Mg Tablet PO 1 tab Q4H PRN Administration Pain 7-10 Hydrocodone Bitart/Acetaminophen 2 tab 10/10/20 08:00 10/14/20 08:55 Hydrocodone/Acetaminophen (*Crx) 5-325 Mg Tablet PO 2 tab 0800,1200 [facility] Administration Hydrocodone Bitart/Acetaminophen 2 tab 10/10/20 21:00 10/13/20 21:42 Hydrocodone/Acetaminophen (*Crx) 5-325 Mg Tablet PO 2 tab BEDTIME [facility] Administration Allopurinol 300 mg 10/10/20 09:00 10/14/20 08:52 Allopurinol 300 Mg Tablet PO 300 mg DAILY [facility] Administration Artificial Tears 1 drop 10/09/20 17:18 Artificial Tears Op Soln 15 Ml Bottle EACH EYE TID PRN Dry Eye(S) Bethanechol Chloride 30 mg 10/09/20 17:25 10/14/20 08:50 Bethanechol Chloride 10 Mg Tablet PO 30 mg TID [facility] Administration Cyclobenzaprine HCl 10 mg 10/09/20 21:00 10/13/20 22:35 Cyclobenzaprine Hcl 10 Mg Tablet PO 10 mg HS [facility] Administration Cyclobenzaprine HCl 5 mg 10/09/20 17:43 Cyclobenzaprine Hcl 5 Mg Tablet PO Q8H PRN Muscle Spasm Cyclobenzaprine HCl 10 mg 10/10/20 12:10 10/14/20 08:51 Cyclobenzaprine Hcl 10 Mg Tablet PO 1
[2020-10-14] MEDS: SENNA/DOCUSATE SODIUM TABLET 1 TAB PO ×2 (10:02→22:05)
[2020-10-14] MEDS: lisinopriL 2.5 MG TABLET PO (13:34)
[2020-10-14 14:00] VITALS: BP 134/54; PULSE 62; RESP 16; TEMP 36.5; O2SAT 99
[2020-10-14 21:47] VITALS: BP 140/55; PULSE 63; RESP 16; TEMP 36.9; O2SAT 94
[2020-10-14] MEDS: TAMSULOSIN HCL 0.4 MG CAPSULE 0.8 MG PO (22:05)
[2020-10-14] MEDS: ROSUVASTATIN 10 MG TABLET PO (22:05)
[2020-10-15 06:00] VITALS: BP 112/44; PULSE 61; RESP 16; TEMP 36.3; O2SAT 98
[2020-10-15] MEDS: CYCLOBENZAPRINE HCL 10 MG TABLET PO ×3 (07:46→21:35)
[2020-10-15] MEDS: HYDROcodone/acetaminophen (*CRX) 5-325 MG TABLET 2 TAB PO ×3 (07:46→21:00)
[2020-10-15] MEDS: FENOFIBRATE 160 MG TABLET PO (09:01)
[2020-10-15] MEDS: allopurinoL 300 MG TABLET PO (09:01)
[2020-10-15] MEDS: PANTOPRAZOLE 40 MG TABLET PO ×2 (09:01→17:35)
[2020-10-15] MEDS: SENNA/DOCUSATE SODIUM TABLET 1 TAB PO ×2 (09:02→20:57)
[2020-10-15] MEDS: FINASTERIDE 5 MG TABLET PO (09:02)
[2020-10-15] MEDS: BETHANECHOL CHLORIDE 10 MG TABLET 30 MG PO ×3 (09:02→17:36)
[2020-10-15] MEDS: GABAPENTIN 300 MG CAPSULE 900 MG PO ×3 (09:02→17:35)
[2020-10-15] MEDS: MULTIVITAMINS THERAPEUTIC TAB (*BKC) 1 TABLET PO (09:02)
[2020-10-15] MEDS: polyethylene glycoL 3350 17 GM POWD.PACK PO (09:05)
--- NOTE | 2020-10-15 11:01 | PCDIET ---
Nutrition Follow-Up Complete: Nutrition Diagnosis: Suboptimal oral intake related to recent surgery as evidenced by average intake of 60% with addition of Frozen Treat TID. Nutrition Goal: Patient to consume 50% of meals and supplements or greater. Goal met. Patient consuming 75-100% of most meals on regular diet. Continues on Frozen Nutritional Treat TID which he reports taking consistently. Denies needs or concerns at this time. Last recorded weight is 88.6 kg. Recommend obtaining new weight. Bowel Motility: Last documented BM on 10/09/20. Patient receiving Senna and Miralax. Labs Reviewed: No new labs available. Meds Noted: [place], MVI, Protonix, Fenofibrate, Miralax, Lisinopril, Crestor, Senna Additional Notes: Surgical incision to neck. No documented pressure sores. Will continue to monitor with same goal. Nutrition Monitoring and Evaluation: Follow up every 7 days.
[2020-10-15] MEDS: lisinopriL 2.5 MG TABLET PO (12:32)
[2020-10-15 14:00] VITALS: BP 134/60; PULSE 53; RESP 16; TEMP 36.9; O2SAT 99
--- NOTE | 2020-10-15 16:22 | WPDNEURORHBP ---
Subjective Date/time seen: 10/15/20 16:22 Interval history: Cervical cord compression with spinal cord compression The patient is a 80-year-old male with past medical history of anxiety, arthritis, cervical stenosis of the spinal canal, gout, hyperlipidemia, hypertension, and urinary retention who presented to [facility] on 10/05/2020 with chronic neck pain. Patient has a long standing history of greater than 10 years of ongoing neck and segments reflect a myelomalacia. EMG and nerve conduction studies were consistent with left C5 and C6 radiculopathy. On 10/05/2020 the patient underwent an occipital to C6 posterior lumbar cervical fusion by Dr. Gavin Gamino. Postoperatively patient had complications of hypertension, acute postoperative pain, weakness, headache, BPH, constipation, urinary retention and acute blood loss anemia. Urology was consulted for the urinary retention and Flomax dose was increased. Patient's surgical drains were removed on 10/07/2020. Patient was given a hard cervical collar and a bone stimulator Patient is seen early this morning and with in the pm. Patient is calm and motivated. Patient wants to decrease pain meds. [place] will be dropped to one tablet. Review of Systems Review of Systems: All systems reviewed & are unremarkable except as noted in HPI and below Functional Status Ambulation Ability Ability to Ambulate 10 Feet: Independent Ability to Ambulate 50 Feet With 2 Turns: Independent Ability to Ambulate 150 Feet: Independent Ambulation Assistive Devices: Walker, Wheeled Transfers Ability Ability to Transfer In/Out of Chair: Standby Assistance Exam Narrative: Exam Narrative: Head is normocephalic .Hard collar in place.. Extraocular muscles are intact. Heart rhythm is regular. Lungs are clear to auscultation. Abdomen is soft nontender . Patient is able to move BUEs with 4/5 strength except proximal shoulder limited ROM is noted. Fine motor dexterity is limited. Sensation is intact to proprioception and light touch. Bilateral lower extremity strength are 5/5. Deep tendon reflexes are brisk throughout. Objective Data Vital Signs Vital Signs: Vital Signs - 24 hr 10/14/20 21:47 10/15/20 06:00 10/15/20 14:00 Temperature 36.9 C 36.3 C L 36.9 C Pulse Rate 63 61 53 L Respiratory Rate 16 16 16 Blood Pressure 140/55 L 112/44 L 134/60 Pulse Oximetry 94 98 99 Intake/Output Intake/Output: Intake & Output 10/12/20 10/13/20 10/14/20 10/15/20 23:59 23:59 23:59 23:59 Intake Total 480 240 960 480 Output Total 425 Balance 480 240 535 480 Meds/Results Medications: Active Medications Generic Name Dose Route Start Last Admin Trade Name Freq PRN Reason Stop Dose Admin Hydrocodone Bitart/Acetaminophen 1 tab 10/09/20 17:18 10/12/20 04:15 Hydrocodone/Acetaminophen (*Crx) 5-325 Mg Tablet PO 1 tab Q4H PRN Administration Pain 7-10 Hydrocodone Bitart/Acetaminophen 2 tab 10/10/20 21:00 10/14/20 22:04 Hydrocodone/Acetaminophen (*Crx) 5-325 Mg Tablet PO 2 tab BEDTIME [facility] Administration Hydrocodone Bitart/Acetaminophen 1 tab 10/16/20 08:00 Hydrocodone/Acetaminophen (*Crx) 5-325 Mg Tablet PO 0800,1200 [facility] Allopurinol 300 mg 10/10/20 09:00 10/15/20 09:01 Allopurinol 300 Mg Tablet PO 300 mg DAILY [facility] Administration Artificial Tears 1 drop 10/09/20 17:18 Artificial Tears Op Soln 15 Ml Bottle EACH EYE TID PRN Dry Eye(S) Bethanechol Chloride 30 mg 10/09/20 17:25 10/15/20 12:31 Bethanechol Chloride 10 Mg Tablet PO 30 mg TID [facility] Administration Cyclobenzaprine HCl 10 mg 10/09/20 21:00 10/14/20 22:04 Cyclobenzaprine Hcl 10 Mg Tablet PO 10 mg HS [facility] Administration Cyclobenzaprine HCl 5 mg 10/09/20 17:43 Cyclobenzaprine Hcl 5 Mg Tablet PO Q8H PRN Muscle Spasm Cyclobenzaprine HCl 10 mg 10/10/20 12:10 10/15/20 12:32 Cyclobenzaprine Hcl 10 Mg Tablet PO 10 mg
[2020-10-15] MEDS: BISACODYL 5 MG TABLET EC PO (18:19)
[2020-10-15] MEDS: ROSUVASTATIN 10 MG TABLET PO (20:57)
[2020-10-15] MEDS: TAMSULOSIN HCL 0.4 MG CAPSULE 0.8 MG PO (20:58)
[2020-10-15 22:00] VITALS: BP 130/49; PULSE 56; RESP 20; TEMP 36.3; O2SAT 98
[2020-10-16 06:00] VITALS: BP 104/57; PULSE 60; RESP 20; TEMP 36.1; O2SAT 98
[2020-10-16 08:00] VITALS: PULSE 60; RESP 20; O2SAT 98
[2020-10-16] MEDS: FINASTERIDE 5 MG TABLET PO (08:53)
[2020-10-16] MEDS: allopurinoL 300 MG TABLET PO (08:53)
[2020-10-16] MEDS: MULTIVITAMINS THERAPEUTIC TAB (*BKC) 1 TABLET PO (08:53)
[2020-10-16] MEDS: GABAPENTIN 300 MG CAPSULE 900 MG PO ×3 (08:53→17:16)
[2020-10-16] MEDS: SENNA/DOCUSATE SODIUM TABLET 1 TAB PO ×2 (08:53→21:35)
[2020-10-16] MEDS: FENOFIBRATE 160 MG TABLET PO (08:53)
[2020-10-16] MEDS: CYCLOBENZAPRINE HCL 10 MG TABLET PO ×3 (08:54→21:35)
[2020-10-16] MEDS: BETHANECHOL CHLORIDE 10 MG TABLET 30 MG PO ×3 (08:54→17:16)
[2020-10-16] MEDS: PANTOPRAZOLE 40 MG TABLET PO ×2 (08:54→17:16)
[2020-10-16] MEDS: HYDROcodone/acetaminophen (*CRX) 5-325 MG TABLET 1 TAB PO ×2 (09:02→12:57)
[2020-10-16] MEDS: lisinopriL 2.5 MG TABLET PO (12:56)
[2020-10-16 14:00] VITALS: BP 133/50; PULSE 66; RESP 20; TEMP 36.6; O2SAT 100
[2020-10-16] MEDS: HYDROcodone/acetaminophen (*CRX) 5-325 MG TABLET 2 TAB PO (21:34)
[2020-10-16] MEDS: ROSUVASTATIN 10 MG TABLET PO (21:35)
[2020-10-16] MEDS: TAMSULOSIN HCL 0.4 MG CAPSULE 0.8 MG PO (21:35)
[2020-10-16 21:50] VITALS: BP 128/83; PULSE 55; RESP 16; TEMP 36.6; O2SAT 97
[2020-10-17 05:08] LABS: Basophils Percent Auto 0.6 % (0.2-1.2); Eosinophils Absolute Auto 0.1 K/mm3 (0-0.3); Eosinophils Percent Auto 1.4 % (0-4.4); Hematocrit 34.8 % (42.0-52.0); Hemoglobin 11.8 g/dL (14.0-18.0); Immature Granulocyte Absolute 0.07 K/mm3 (0.00-0.031); Immature Granulocyte Percent A 1.1 % (0-0.5); Lymphocytes Absolute Auto 1.96 K/mm3 (0.9-3.2); Lymphocytes Percent Auto 30.1 % (18.3-44.2); Mean Corpuscular HGB Conc 33.9 g/dl (32-36); Mean Corpuscular Hemoglobin 31.6 pg (26-34); Mean Corpuscular Volume 93.3 fl (80-100); Mean Platelet Volume 8.3 fl (7.4-10.4); Monocytes Absolute Auto 0.5 K/mm3 (0.1-0.6); Neutrophils Absolute Auto 3.8 K/mm3 (1.3-6.7); Neutrophils Percent Auto 58.8 % (45.5-73.1); Platelet Count Result 496 k/mm3 (150-375); Red Blood Count 3.73 M/mm3 (4.6-6.20); Red Cell Distribution Width 12.2 % (11.5-14.5); White Blood Count 6.5 K/mm3 (4.5-10.0)
[2020-10-17 05:23] LABS: Alanine Aminotransferase 27 U/L (4-50); Albumin Level 3.6 g/dL (3.5-5.1); Alkaline Phosphatase 65 U/L (38-126); Anion Gap 3 mmol/L (8-16); Aspartate Amino Transferase 38 U/L (17-59); Bilirubin,Total 0.2 mg/dL (0.2-1.3); Blood Urea Nitrogen 18 mg/dL (9-20); Calcium 8.6 mg/dL (8.4-10.2); Carbon Dioxide 31 mmol/L (22-30); Chloride 100 mmol/L (98-107); Estimated CRCL calculation 54 ml/min; Estimated Glomerular Filt Rate > 60; Glucose 117 mg/dL (75-110); Potassium 4.4 mmol/L (3.4-5.0); Sodium 134 mmol/L (137-145)
[2020-10-17 05:36] VITALS: BP 90/43; PULSE 49; RESP 16; TEMP 36.3; O2SAT 97
--- NOTE | 2020-10-17 08:56 | WPDNEURORHBP ---
Subjective Date/time seen: 10/17/20 08:56 Interval history: Cervical cord compression with spinal cord compression The patient is a 80-year-old male with past medical history of anxiety, arthritis, cervical stenosis of the spinal canal, gout, hyperlipidemia, hypertension, and urinary retention who presented to [facility] on 10/05/2020 with chronic neck pain. Patient has a long standing history of greater than 10 years of ongoing neck and segments reflect a myelomalacia. EMG and nerve conduction studies were consistent with left C5 and C6 radiculopathy. On 10/05/2020 the patient underwent an occipital to C6 posterior lumbar cervical fusion by Dr. Gavin Gamino. Postoperatively patient had complications of hypertension, acute postoperative pain, weakness, headache, BPH, constipation, urinary retention and acute blood loss anemia. Urology was consulted for the urinary retention and Flomax dose was increased. Patient's surgical drains were removed on 10/07/2020. Patient was given a hard cervical collar and a bone stimulator Patient is seen this morning in bed. Patient is calm and resting comfortably. Review of Systems Review of Systems: All systems reviewed & are unremarkable except as noted in HPI and below Functional Status Ambulation Ability Ability to Ambulate 10 Feet: Independent Ability to Ambulate 50 Feet With 2 Turns: Independent Ability to Ambulate 150 Feet: Independent Ambulation Assistive Devices: Walker, Wheeled Transfers Ability Ability to Transfer In/Out of Chair: Independent Exam Narrative: Exam Narrative: Head is normocephalic .Hard collar in place.. Extraocular muscles are intact. Heart rhythm is regular. Lungs are clear to auscultation. Abdomen is soft nontender . Patient is able to move BUEs with 4/5 strength except proximal shoulder limited ROM is noted. Fine motor dexterity is limited. Sensation is intact to proprioception and light touch. Bilateral lower extremity strength are 5/5. Deep tendon reflexes are brisk throughout. Patient lost his balance yesterday because of rushing and impulsiveness. Objective Data Vital Signs Vital Signs: Vital Signs - 24 hr 10/16/20 14:00 10/16/20 21:50 10/17/20 05:36 Temperature 36.6 C 36.6 C 36.3 C L Pulse Rate 66 55 L 49 L Respiratory Rate 20 16 16 Blood Pressure 133/50 L 128/83 90/43 L Pulse Oximetry 100 97 97 Intake/Output Intake/Output: Intake & Output 10/14/20 10/15/20 10/16/20 10/17/20 23:59 23:59 23:59 23:59 Intake Total 960 720 720 Output Total 425 425 Balance 535 720 295 Meds/Results Medications: Active Medications Generic Name Dose Route Start Last Admin Trade Name Freq PRN Reason Stop Dose Admin Hydrocodone Bitart/Acetaminophen 1 tab 10/09/20 17:18 10/12/20 04:15 Hydrocodone/Acetaminophen (*Crx) 5-325 Mg Tablet PO 1 tab Q4H PRN Administration Pain 7-10 Hydrocodone Bitart/Acetaminophen 2 tab 10/10/20 21:00 10/16/20 21:34 Hydrocodone/Acetaminophen (*Crx) 5-325 Mg Tablet PO 2 tab BEDTIME [facility] Administration Hydrocodone Bitart/Acetaminophen 1 tab 10/16/20 08:00 10/16/20 12:57 Hydrocodone/Acetaminophen (*Crx) 5-325 Mg Tablet PO 1 tab 0800,1200 [facility] Administration Allopurinol 300 mg 10/10/20 09:00 10/16/20 08:53 Allopurinol 300 Mg Tablet PO 300 mg DAILY [facility] Administration Artificial Tears 1 drop 10/09/20 17:18 Artificial Tears Op Soln 15 Ml Bottle EACH EYE TID PRN Dry Eye(S) Bethanechol Chloride 30 mg 10/09/20 17:25 10/16/20 17:16 Bethanechol Chloride 10 Mg Tablet PO 30 mg TID [facility] Administration Bisacodyl 5 mg 10/15/20 17:57 Bisacodyl 5 Mg Tablet Ec PO QAM PRN Constipation Cyclobenzaprine HCl 10 mg 10/09/20 21:00 10/16/20 21:35 Cyclobenzaprine Hcl 10 Mg Tablet PO 10 mg HS [facility] Administration Cyclobenzaprine HCl 5 mg 10/09/20 17:43 Cyclobenzaprine Hcl 5 Mg Tablet PO Q8H PRN [place]cle [place]
[2020-10-17] MEDS: HYDROcodone/acetaminophen (*CRX) 5-325 MG TABLET 1 TAB PO ×3 (09:42→20:27)
[2020-10-17] MEDS: BETHANECHOL CHLORIDE 10 MG TABLET 30 MG PO ×3 (09:42→17:32)
[2020-10-17] MEDS: SENNA/DOCUSATE SODIUM TABLET 1 TAB PO ×2 (09:42→20:27)
[2020-10-17] MEDS: allopurinoL 300 MG TABLET PO (09:43)
[2020-10-17] MEDS: FENOFIBRATE 160 MG TABLET PO (09:43)
[2020-10-17] MEDS: PANTOPRAZOLE 40 MG TABLET PO ×2 (09:43→17:32)
[2020-10-17] MEDS: GABAPENTIN 300 MG CAPSULE 900 MG PO ×3 (09:43→17:32)
[2020-10-17] MEDS: FINASTERIDE 5 MG TABLET PO (09:43)
[2020-10-17] MEDS: MULTIVITAMINS THERAPEUTIC TAB (*BKC) 1 TABLET PO (09:44)
[2020-10-17] MEDS: CYCLOBENZAPRINE HCL 5 MG TABLET PO (13:42)
[2020-10-17] MEDS: lisinopriL 2.5 MG TABLET PO (13:42)
[2020-10-17 14:00] VITALS: BP 125/62; PULSE 76; RESP 16; TEMP 36.3; O2SAT 100
[2020-10-17] MEDS: CYCLOBENZAPRINE HCL 10 MG TABLET PO (20:27)
[2020-10-17] MEDS: ROSUVASTATIN 10 MG TABLET PO (20:27)
[2020-10-17] MEDS: TAMSULOSIN HCL 0.4 MG CAPSULE 0.8 MG PO (20:27)
[2020-10-17 21:31] VITALS: BP 107/35; PULSE 52; RESP 16; TEMP 36.4; O2SAT 99
[2020-10-18 05:34] VITALS: BP 105/44; PULSE 52; RESP 16; TEMP 36.3; O2SAT 98
[2020-10-18] MEDS: CYCLOBENZAPRINE HCL 5 MG TABLET PO ×2 (09:07→12:31)
[2020-10-18] MEDS: HYDROcodone/acetaminophen (*CRX) 5-325 MG TABLET 1 TAB PO ×3 (09:07→20:42)
[2020-10-18] MEDS: FENOFIBRATE 160 MG TABLET PO (09:08)
[2020-10-18] MEDS: SENNA/DOCUSATE SODIUM TABLET 1 TAB PO ×2 (09:08→20:42)
[2020-10-18] MEDS: PANTOPRAZOLE 40 MG TABLET PO ×2 (09:08→17:16)
[2020-10-18] MEDS: GABAPENTIN 300 MG CAPSULE 900 MG PO ×3 (09:08→17:16)
[2020-10-18] MEDS: allopurinoL 300 MG TABLET PO (09:08)
[2020-10-18] MEDS: MULTIVITAMINS THERAPEUTIC TAB (*BKC) 1 TABLET PO (09:08)
[2020-10-18] MEDS: BETHANECHOL CHLORIDE 10 MG TABLET 30 MG PO ×3 (09:08→17:16)
[2020-10-18] MEDS: FINASTERIDE 5 MG TABLET PO (09:09)
--- NOTE | 2020-10-18 09:17 | WPDNEURORHBP ---
Subjective Date/time seen: 10/18/20 09:17 Interval history: Cervical cord compression with spinal cord compression The patient is a 80-year-old male with past medical history of anxiety, arthritis, cervical stenosis of the spinal canal, gout, hyperlipidemia, hypertension, and urinary retention who presented to [facility] on 10/05/2020 with chronic neck pain. Patient has a long standing history of greater than 10 years of ongoing neck and segments reflect a myelomalacia. EMG and nerve conduction studies were consistent with left C5 and C6 radiculopathy. On 10/05/2020 the patient underwent an occipital to C6 posterior lumbar cervical fusion by Dr. Gavin Gamino. Postoperatively patient had complications of hypertension, acute postoperative pain, weakness, headache, BPH, constipation, urinary retention and acute blood loss anemia. Urology was consulted for the urinary retention and Flomax dose was increased. Patient's surgical drains were removed on 10/07/2020. Patient was given a hard cervical collar and a bone stimulator Patient is seen in wheelchair eating breakfast. Patient looking forward to discharge tomorrow. Review of Systems Review of Systems: All systems reviewed & are unremarkable except as noted in HPI and below Functional Status Ambulation Ability Ability to Ambulate 10 Feet: Independent Ability to Ambulate 50 Feet With 2 Turns: Independent Ability to Ambulate 150 Feet: Independent Ambulation Assistive Devices: Walker, Wheeled Transfers Ability Ability to Transfer In/Out of Chair: Independent Exam Narrative: Exam Narrative: Head is normocephalic .Hard collar in place.. Extraocular muscles are intact. Heart rhythm is regular. Lungs are clear to auscultation. Abdomen is soft nontender . Patient is able to move BUEs with 4/5 strength except proximal shoulder limited ROM is noted. Fine motor dexterity is limited. Sensation is intact to proprioception and light touch. Bilateral lower extremity strength are 5/5. Deep tendon reflexes are brisk throughout. Patient needs reminders to slow down. patient is independent with transfers using a 2 wheeled walker. Patient is independent with gait 150 ft using a front wheel walker. Objective Data Vital Signs Vital Signs: Vital Signs - 24 hr 10/17/20 14:00 10/17/20 21:31 10/18/20 05:34 Temperature 36.3 C L 36.4 C L 36.3 C L Pulse Rate 76 52 L 52 L Respiratory Rate 16 16 16 Blood Pressure 125/62 107/35 L 105/44 L Pulse Oximetry 100 99 98 Intake/Output Intake/Output: Intake & Output 10/15/20 10/16/20 10/17/20 10/18/20 23:59 23:59 23:59 23:59 Intake Total 493 275 0981 360 Output Total 425 Balance 379 172 3636 360 Meds/Results Medications: Active Medications Generic Name Dose Route Start Last Admin Trade Name Freq PRN Reason Stop Dose Admin Hydrocodone Bitart/Acetaminophen 1 tab 10/09/20 17:18 10/12/20 04:15 Hydrocodone/Acetaminophen (*Crx) 5-325 Mg Tablet PO 1 tab Q4H PRN Administration Pain 7-10 Hydrocodone Bitart/Acetaminophen 1 tab 10/16/20 08:00 10/18/20 09:07 Hydrocodone/Acetaminophen (*Crx) 5-325 Mg Tablet PO 1 tab 0800,1200 [facility] Administration Hydrocodone Bitart/Acetaminophen 1 tab 10/17/20 21:00 10/17/20 20:27 Hydrocodone/Acetaminophen (*Crx) 5-325 Mg Tablet PO 1 tab BEDTIME [facility] Administration Allopurinol 300 mg 10/10/20 09:00 10/18/20 09:08 Allopurinol 300 Mg Tablet PO 300 mg DAILY [facility] Administration Artificial Tears 1 drop 10/09/20 17:18 Artificial Tears Op Soln 15 Ml Bottle EACH EYE TID PRN Dry Eye(S) Bethanechol Chloride 30 mg 10/09/20 17:25 10/18/20 09:08 Bethanechol Chloride 10 Mg Tablet PO 30 mg TID [facility] Administration Bisacodyl 5 mg 10/15/20 17:57 Bisacodyl 5 Mg Tablet Ec PO QAM PRN Constipation Cyclobenzaprine HCl 10 mg 10/09/20 21:00 10/17/20 20:27 Cyclobenzaprine Hcl 10 Mg Tablet PO 10 mg HS [facility]IL[facility]
[2020-10-18] MEDS: lisinopriL 2.5 MG TABLET PO (12:31)
[2020-10-18 13:46] VITALS: BP 139/61; PULSE 61; RESP 16; TEMP 36.3; O2SAT 99
[2020-10-18] MEDS: TAMSULOSIN HCL 0.4 MG CAPSULE 0.8 MG PO (20:42)
[2020-10-18] MEDS: ROSUVASTATIN 10 MG TABLET PO (20:42)
[2020-10-18] MEDS: CYCLOBENZAPRINE HCL 10 MG TABLET PO (20:42)
[2020-10-18 21:23] VITALS: BP 134/62; PULSE 56; RESP 16; TEMP 36.4; O2SAT 100
[2020-10-19 06:00] VITALS: BP 130/56; PULSE 55; RESP 16; TEMP 36.4; O2SAT 99
[2020-10-19] MEDS: MULTIVITAMINS THERAPEUTIC TAB (*BKC) 1 TABLET PO (09:04)
[2020-10-19] MEDS: HYDROcodone/acetaminophen (*CRX) 5-325 MG TABLET 1 TAB PO ×2 (09:04→11:47)
[2020-10-19] MEDS: GABAPENTIN 300 MG CAPSULE 900 MG PO ×2 (09:04→11:47)
[2020-10-19] MEDS: PANTOPRAZOLE 40 MG TABLET PO (09:04)
[2020-10-19] MEDS: FENOFIBRATE 160 MG TABLET PO (09:04)
[2020-10-19] MEDS: allopurinoL 300 MG TABLET PO (09:04)
[2020-10-19] MEDS: BETHANECHOL CHLORIDE 10 MG TABLET 30 MG PO ×2 (09:04→11:47)
[2020-10-19] MEDS: CYCLOBENZAPRINE HCL 5 MG TABLET PO (09:04)
[2020-10-19] MEDS: FINASTERIDE 5 MG TABLET PO (09:05)
[2020-10-19] MEDS: SENNA/DOCUSATE SODIUM TABLET 1 TAB PO (09:05)
--- NOTE | 2020-10-19 10:12 | PM.DS ---
DS: Admitting Diagnosis Admitting Diagnosis Admitting Diagnosis: cervical myelopathy/stenosis s/p surgery DS: Discharge Diagnosis Discharge Diagnosis (1) Cervical myelopathy: Code(s): G95.9 - Disease of spinal cord, unspecified Status: Acute Assessment and Plan: Patient will receive physical therapy focusing on balance transfers gait fall prevention. OT will focus on fine motor control, range of motion ADLs and transfers. Patient will receive Flexeril and Pettibone scheduled prior to therapies. patient takes 900 mg of Neurontin 3 times a day. Will decrease Flexeril to 5 mg (2) Urinary retention: Code(s): R33.9 - Retention of urine, unspecified Status: Acute Assessment and Plan: patient is on Urecholine 30 mg 3 times a day, Proscar 5 mg daily. Flomax 0.8 mg daily. 10/09/20 Patient required straight cathing with volumes of greater than 600 cc. Bladder scans are low and will be prn. (3) Cervical stenosis of spine: Code(s): M48.02 - Spinal stenosis, cervical region Status: Acute (4) HTN (hypertension), benign: Code(s): I10 - Essential (primary) hypertension Status: Acute Assessment and Plan: patient takes patient takes lisinopril 2.5 mg daily (5) Hypercholesteremia: Code(s): E78.00 - Pure hypercholesterolemia, unspecified Status: Acute Assessment and Plan: Crestor (6) IFG (impaired fasting glucose): Code(s): R73.01 - Impaired fasting glucose Status: Acute (7) Hyperlipemia: Code(s): E78.5 - Hyperlipidemia, unspecified Status: Acute DS: Summary Hospital Course Hospital Course: Chief Complaint: Myeloma lesion of cervical cord with spinal cord compression Narrative: HISTORY OF PRESENT ILLNESS: The patient's primary rehab impairment category is spinal cord dysfunction nontraumatic[] The etiologic diagnosis is 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 Patient has a long standing history of greater than 10 years of ongoing neck and segments reflect a myelomalacia. EMG and nerve conduction studies were consistent with left C5 and C6 radiculopathy. On 10/05/2020 the patient underwent an a Cipro all to C6 posterior lumbar cervical fusion by Dr. Gavin Gamino. Postoperatively patient had complications of hypertension, acute postoperative pain, weakness, headache, BPH, constipation, urinary retention and acute blood loss anemia. Urology was consulted for the urinary to retention and Flomax dose was increased. Patient's surgical drains were removed removed on 10/07/2020. Patient was given a hard cervical collar. No DVT prophylaxis will be ordered per hospitalist at the referring hospital. COVID test negative for 10/09/2020. Therapy was initiated at the acute care facility and the patient transferred to us from [facility] from 10-09-2020[] FALLS OR SURGERIES: The patient has had major surgeries in the 100 days prior to admission . Patient underwent cervical surgery a septal to C6 posterior lumbar cervical fusion. They had [no] falls in the past year. They had [no] falls with injury in the past year. ADMISSION FUNCTION: Eating was partial to moderate assist Oral Care was supervision or touching assist Toileting Hygiene was partial to moderate assistance Shower/Bathing was partial to moderate assistance Upper Body Dressing was partial to moderate assistance Lower Body Dressing was partial to moderate ass Donning/[place] Footwear was ist partial to moderate assist Rolling Left and Right was supervision or touching Sit to Lying was assistance supervisio
[2020-10-19] MEDS: lisinopriL 2.5 MG TABLET PO (11:46)
== END 2020-10-19 12:15 | disposition home health service (06) | DRG 560 ==
PROVIDERS: Admitting Provider Physical Medicine & Rehabilitation; PCP Family Medicine; Visit Provider Physical Medicine & Rehabilitation
DX: Z47.89 Encounter for other orthopedic aftercare (principal); G95.89 Other specified diseases of spinal cord; D62 Acute posthemorrhagic anemia; M48.02 Spinal stenosis, cervical region; M54.12 Radiculopathy, cervical region; E78.5 Hyperlipidemia, unspecified; I10 Essential (primary) hypertension; R33.8 Other retention of urine; R73.01 Impaired fasting glucose; R53.1 Weakness; N40.1 Benign prostatic hyperplasia with lower urinary tract symptoms; Z87.891 Personal history of nicotine dependence
CPT/HCPCS: 36415; 80053; 85025; 97110; 97116; 97161; 97167; 97530; 97535; A9270

== ENCOUNTER 2021-07-14 00:42 | Day surgery (SDC) | payer MEDICARE, SELFPAY ==
[2021-06-29 11:46] VITALS: BMI 25.1
--- NOTE | 2021-07-13 15:43 | PM.HPGS ---
History of Present Illness History of Present Illness Consent: Risks, benefits, and alternatives have been discussed and questions answered. Patient agrees to proceed with procedure. Chief complaint: family hx of colon ca Narrative: Lorenzo Clark is a 80 year old male Referred for colon cancer screening. His last colonoscopy was 6 years ago. He has a family history of colon cancer, His father. Review of Systems Review of Systems: All systems reviewed & are unremarkable except as noted in HPI and below PMFSH Past Medical History Medical History Arthritis Bilateral carpal tunnel syndrome BPH (benign prostatic hyperplasia) Cervical myelopathy Early cataracts, bilateral GERD (gastroesophageal reflux disease) HTN (hypertension), benign Hx of gout Hx of melanoma of skin Hx of transient ischemic attack (TIA) Hypercholesteremia Hyperlipemia IFG (impaired fasting glucose) Peripheral neuropathy Urinary retention Surgical History Surgical History History of bilateral carpal tunnel release DIOGENES History of bilateral knee replacement History of colonoscopy History of fusion of cervical spine 10/05/20 History of hand surgery rt bone graft History of thumb surgery rt nerve repair Hx of cervical spine surgery Microdiscectomy. Hx of melanoma excision Family History Family History Sibling Carcinoma of colon Father Malignant neoplasm of prostate Mother Heart disease Other Family history of malignant neoplasm Social History Social History Social History: patient is lives in a single-story home with 2 step to enter from the front door. Or 1 flight of steps to enter from the garage. Patient is a former smoker and quit in 1970. He drinks approximately 2 beers per week. He denies illicit drug use. Prior to this patient was independent with ADLs. Patient has available to him from bilateral knee surgeries a wheeled walker and a straight cane. Patient was extremely active and perform yd work for his [place] half acres. Over the last year the pain has become severe that patient was limiting his activity. Patient was able to drive and performed all cooking. Smoking packs per day: 0.5 Smoking cigarettes per day: 10.0 Years smoked: 6 Smoking pack-years: 3.00 Smoking status: Former smoker Tobacco type: cigarettes Second hand tobacco smoke exposure: Yes Smoking end date: 07/03/70 Alcohol intake: current Drinks per week: 3 Alcohol use details: rare Substance use: never Substance use type: does not use Living arrangements: with family Gender identity (if verbalized by the patient): Male Sexual Orientation (if Verbalized by the Patient): Straight or Heterosexual Spiritual care concerns: No Meds Home Medications and Allergies Home Medications Medication Instructions Recorded Confirmed Type Benzedrex 2 inh INTRANASAL Q3-6H PRN 10/09/20 06/29/21 History polyethylene glycol 3350 17 g PO Q12H 10/09/20 06/29/21 History polyvinyl alcohol [Artificial 1 drp EACH EYE TID PRN 10/09/20 06/29/21 History Tears (polyvin alc)] prenat.vits,paula,pwk-euox-qikyp 1 tablet PO DAILY 10/09/20 06/29/21 History cyclobenzaprine 10 mg PO Q8H PRN #45 tablet 10/19/20 06/29/21 Rx fenofibrate 160 mg PO DAILY #90 tablet 10/19/20 06/29/21 Rx omeprazole 40 mg PO DAILY #30 cap 10/19/20 06/29/21 Rx gabapentin 300 mg capsule See Rx Instructions .ROUTE 01/04/21 06/29/21 Rx .COMPLEX #810 cap lisinopril 2.5 mg tablet 2.5 mg PO DAILY@1300 #90 tablet 01/04/21 06/29/21 Rx buspirone 5 mg tablet 5 mg PO BID #60 tablet 03/03/21 06/29/21 Rx allopurinol 300 mg tablet 300 mg PO DAILY #90 tablet 03/23/21 06/29/21 Rx rosuvastatin 10 mg tablet 10 mg PO HS #90 tablet 05/26/21 06/29/21 Rx tamsulosin 0.4
[2021-07-14 10:05] VITALS: BP 148/74; PULSE 55; RESP 18; TEMP 36.3; O2SAT 100
[2021-07-14] MEDS: LACTATED RINGERS 1,000 ML 150 ML IV CONT (10:17)
[2021-07-14 11:25] VITALS: BP 109/58; PULSE 51; RESP 17; O2SAT 98
[2021-07-14 11:35] VITALS: BP 103/55; PULSE 50; RESP 22; O2SAT 98
[2021-07-14 11:45] VITALS: BP 110/69; PULSE 52; RESP 16; O2SAT 97
[2021-07-14 11:55] VITALS: BP 122/64; PULSE 48; RESP 24; O2SAT 98
== END 2021-07-14 12:14 | disposition home or self-care (01) ==
PROVIDERS: PCP Family Medicine; Visit Provider Internal Medicine Gastroenterology
PROC: 0DJD8ZZ Inspection of Lower Intestinal Tract, Via Natural or Artificial Opening Endoscopic (ICD-10-PCS; CPT 45378; principal; 2021-07-14 11:00)
DX: Z12.11 Encounter for screening for malignant neoplasm of colon (principal); K57.30 Diverticulosis of large intestine without perforation or abscess without bleeding; K64.8 Other hemorrhoids; D12.2 Benign neoplasm of ascending colon; Z80.0 Family history of malignant neoplasm of digestive organs; N40.0 Benign prostatic hyperplasia without lower urinary tract symptoms; K21.9 Gastro-esophageal reflux disease without esophagitis; I10 Essential (primary) hypertension; M10.9 Gout, unspecified; E78.00 Pure hypercholesterolemia, unspecified; G62.9 Polyneuropathy, unspecified; R33.9 Retention of urine, unspecified; Z86.73 Personal history of transient ischemic attack (TIA), and cerebral infarction without residual deficits; Z98.1 Arthrodesis status; Z87.891 Personal history of nicotine dependence
CPT/HCPCS: 45381; 45385; 88305; J2704; J7120

== ENCOUNTER → 2022-01-27 10:25 | Outpatient (CLI) | payer MEDICARE, SELFPAY ==
--- NOTE | ~2022-01-27 | XR_ITS ---
XR hip BI wo pelvis 01/27/2022 11:12 Indication: Bilateral hip pain Procedure: 2 views each hip Comparison: 07/01/2019 Findings: Moderate bilateral osteoarthritis of the hips. There is lower lumbar spondylosis. Kylah mc Impression: 1: Moderate osteoarthritis of the hips. Reviewed, dictated and finalized at location A. Impression: 1: Moderate osteoarthritis of the hips.
--- NOTE | ~2022-01-27 | XR_ITS ---
XR lumbar spine 2-3V 01/27/2022 11:12 Indication: Low back pain Procedure: 3 views of the lumbar spine Comparison: 07/16/2019 Findings: There is disc narrowing and endplate degenerative changes at all lumbar levels. There is ad vanced multilevel facet hypertrophy. No acute fracture or traumatic malalignment. There is hypertroph y of the spinous processes. Prominent ventral osteophytes at all levels. No acute fracture or traumat ic malalignment. There is mild levocurvature of the lumbar spine centered at L3-4. Sacral foramen are grossly symmetric. Impression: 1: Severe lumbar spondylosis. Reviewed, dictated and finalized at location A. Impression: 1: Severe lumbar spondylosis.
== END ==
PROVIDERS: PCP Family Medicine; Visit Provider Nurse Practitioner Family
DX: M47.896 Other spondylosis, lumbar region (principal); M16.0 Bilateral primary osteoarthritis of hip
CPT/HCPCS: 72100; 73521

== ENCOUNTER → 2022-05-18 09:44 | Outpatient (CLI) | payer MEDICARE, SELFPAY ==
--- NOTE | ~2022-05-18 | MR_ITS ---
EXAMINATION: MR lumbar spine wo con DATE: 05/18/2022 10:21 INDICATION: Low back pain. TECHNIQUE: Magnetic resonance imaging (MRI) of the lumbar spine was performed without intravenous con trast. Sequences included sagittal T2-weighted FSE, sagittal T2-weighted FS FSE, sagittal T1-weighted FSE, and axial T2-weighted FSE. COMPARISON: Lumbar spine radiographs 01/27/2022 FINDINGS: There is 9 degrees levocurvature of lumbar spine. There is 3 mm retrolisthesis of L1 on L2 and L2 on L3 and 3 mm anterolisthesis of L4 on L5. There is mild chronic anterior wedging of T12 and L1 vertebral bodies. There is severely decreased disc height at L1-L2 and L2-L3, mildly decreased dis c height at L3-L4, and severely decreased disc height at L4-L5 with endplate remodeling. There is lig amentum flavum hypertrophy at the disc levels in lumbar spine. The distal spinal cord signal intensit y is normal. The conus medullaris is at T12-L1. The following disc levels are specifically discussed: L1-L2: The disc is bulging and has an annular fissure. There is mild bilateral facet joint osteoarthr itis. There is moderate bilateral neural foraminal stenosis. There is mild central canal stenosis. L2-L3: The disc is bulging and has an annular fissure. There is severe bilateral facet joint osteoart hritis. There is moderate bilateral neural foraminal stenosis. There is severe central canal stenosis . L3-L4: The disc is bulging and has an annular fissure. There is severe right and moderate left facet joint osteoarthritis. There is moderate bilateral neural foraminal stenosis. There is mild central ca nal stenosis. L4-L5: The disc is bulging and has an annular fissure. There is severe bilateral facet joint osteoart hritis. There is moderate bilateral neural foraminal stenosis. There is mild central canal stenosis. There is severe stenosis of right lateral recess and moderate stenosis of left lateral recess. L5-S1: The disc is bulging and has an annular fissure. There is severe bilateral facet joint osteoart hritis. There is moderate bilateral neural foraminal stenosis. There is mild central canal stenosis. IMPRESSION: 1. Severe lumbar spondylosis. Reviewed, dictated and finalized at location A. INIST HELPER
== END ==
PROVIDERS: PCP Family Medicine; Visit Provider Nurse Practitioner Family
DX: M47.896 Other spondylosis, lumbar region (principal)
CPT/HCPCS: 72148

== ENCOUNTER 2022-11-17 07:23 | Outpatient (CLI) | payer MEDICARE, SELFPAY ==
--- NOTE | ~2022-11-17 | NM_ITS ---
EXAMINATION: NM lesly stress w perfusion DATE: 11/17/2022 10:49 INDICATION: Other forms of dyspnea. TECHNIQUE: Rest images were obtained following intravenous administration of 10.9 mCi Tc99m tetrofosm in (Myoview). The patient was infused intravenously with Lexiscan (regadenoson). Then, 34.9 mCi Tc99m tetrofosmin (Myoview) was administered intravenously, and stress images were obtained. Data was [place] nstructed into short axis and horizontal and vertical long axis SPECT images. Gated SPECT images were also obtained. COMPARISON: None. FINDINGS: There is no definite reversible or fixed perfusion abnormality to suggest ischemia or infar ction. There is no segmental wall motion abnormality. Left ventricular ejection fraction measures > 70%. IMPRESSION: 1. No definite ischemia or infarct. 2. Normal left ventricular ejection fraction measuring >70%. Reviewed, dictated and finalized at location A.
--- NOTE | 2022-11-17 07:55 | ECHO_ITS ---
Patient Info Name: MARILUZ HERNANDEZ Age: 82 years : 1940 Gender: Male Ht: 70 in Wt: 175 lbs BSA: 1.99 m2 HR: 47 bpm BP: 148 / 74 mmHg Heart Rhythm: Sinus Rhythm Technical Quality: Good Exam Date: 11/17/2022 8:20 AM Exam Location: [facility] Pulmonary Patient Status: Outpatient Admit Date: 11/17/2022 Staff Ordering Physician: Wilman Salcido DO Instructor Programmable Controllers: Asha Roth RDCS Attending Provider: Wilman Salcido DO Referring Physician: Omari RUBIO; Exam Type: CA echo doppler color flow Study Info Indications R06.09 - Other forms of dyspnea Complete two-dimensional, color flow and Doppler transthoracic echocardiogram is performed. Summary 1. Complete two-dimensional, color flow and Doppler transthoracic echocardiogram is performed. 2. Left ventricular chamber dimension is normal. 3. Left ventricular systolic function is normal, estimated at 60-65%. 4. There is mild concentric increased left ventricular wall thickness. 5. The left ventricular diastolic function is abnormal. 6. E/e' 11 is mildly elevated. 7. Left atrial chamber dimension is mildly enlarged. 8. There is mild aortic valve sclerosis. 9. There is trace aortic valve regurgitation. Left Ventricle E/e' 11 is mildly elevated. Left ventricular chamber dimension is normal. Left ventricular systolic function is normal, estimated at 60-65%. There is mild concentric increased left ventricular wall thickness. The left ventricular diastolic function is abnormal. Right Ventricle Right ventricular systolic function is normal and with normal TAPSE 2.4 cm. Right ventricular chamber dimension is normal. Left Atria Left atrial chamber dimension is mildly enlarged. Right Atria Right atrial chamber dimension is normal. Aortic Valve The aortic valve is trileaflet. There is mild aortic valve sclerosis. There is no aortic valve stenosis. There is trace aortic valve regurgitation. Pulmonic Valve There is no pulmonic regurgitation. Mitral Valve There is no mitral valve stenosis. There is no mitral valve regurgitation. Tricuspid Valve There is no tricuspid valve regurgitation. Pericardium/Pleural There is no pericardial effusion. Inferior Vena Cava Normal inferior vena cava with >50% collapse upon inspiration consistent with normal right atrial pressure, 5 mmHg. Aorta The aortic root size at the sinus of Valsalva is normal. Tricuspid Valve Name Value Normal Estimated PAP/RSVP RA Pressure 5 mmHg <=5 Report Signatures
--- NOTE | 2022-11-17 07:55 | EST_ITS ---
Patient Info Name: MARILUZ HERNANDEZ Age: 82 years : 1940 Gender: Male Ht: 70 in Wt: 175 lbs BSA: 1.99 m2 Exam Date: 11/17/2022 9:54 AM Exam Location: [facility] Stress Patient Status: Outpatient Admit Date: 11/17/2022 Staff Ordering Physician: Wilman Salcido DO Attending Provider: Wilman Salcido DO Exercise Technologist: Karlene Alexander RDCS Exercise Physician: Wilman Salcido DO Exam Type: CA stress lesly w NM Study Info Indications R06.09 - Other forms of dyspnea A regadenoson stress test was performed. Summary 1. 1. Inconclusive lexiscan stress test for ischemic ST changes by ECG criteria due to baseline LBBB. 2. 2. Stable hemodynamics throughout the test. 3. 3. Nuclear scan to follow and will be reported separately. Please correlate with it. 4. 4. Patient informed of the above results. Protocol: Lexiscan Stress ECG Details Stage: REST Duration (min): 1 min : 52 sec HR (bpm): 44 SBP (mmHg): 113 DBP (mmHg): 68 Stage: REST Duration (min): 12 min : 59 sec HR (bpm): 44 SBP (mmHg): 113 DBP (mmHg): 68 Stage: STAGE 1 Duration (min): 1 min : 0 sec HR (bpm): 55 SBP (mmHg): 113 DBP (mmHg): 68 Stage: RECOVERY Duration (min): 1 min : 0 sec HR (bpm): 64 SBP (mmHg): 119 DBP (mmHg): 59 Stage: RECOVERY Duration (min): 2 min : 0 sec HR (bpm): 61 SBP (mmHg): 124 DBP (mmHg): 61 Stage: RECOVERY Duration (min): 3 min : 0 sec HR (bpm): 53 SBP (mmHg): 127 DBP (mmHg): 62 Stage: RECOVERY Duration (min): 3 min : 7 sec HR (bpm): 53 SBP (mmHg): 127 DBP (mmHg): 62 Rest HR: 44 bpm Peak HR: 67 bpm Rest Sys BP: 113 mmHg Peak Sys BP: 127 mmHg Max Pred HR: 138 bpm % Max Pred HR: 49 % Target HR: 117 bpm Max RPP: 8,509 bpm*mmHg Termination Reason: Completed protocol Cardiac Symptoms: Shortness of breath Total Time: 1 min : 0 sec Rest Cross BP: 68 mmHg Peak Cross BP: 62 mmHg Total Dose: 0.4 mg Resting ECG Sinus bradycardia, LBBB. Stress ECG No ST changes. Arrhythmias None. Report Signatures
== END 2022-11-17 07:24 | disposition home or self-care (01) ==
LOC: ANHCARD 07:25
PROVIDERS: PCP Family Medicine; Visit Provider Internal Medicine Cardiovascular Disease
DX: R06.09 Other forms of dyspnea (principal)
CPT/HCPCS: 78452; 93017; 93306; A9502; J2785

== ENCOUNTER 2024-07-16 12:28 | Outpatient (CLI) | payer MEDICARE, SELFPAY ==
--- NOTE | ~2024-07-16 | XR_ITS ---
HISTORY: R07.81 - Pleurodynia COMPARISON: None TECHNIQUE: 3 views of the left ribs were performed along with a PA and lateral of the chest FINDINGS: Cardiomediastinal silhouette is unremarkable. The lungs are clear. Bridging osteophyte formation is identified within the mid thoracic spine extending approximately 2 c m anterior from the vertebral column on lateral view. No acute displaced left rib fracture is appreciated. IMPRESSION: No acute displaced left-sided rib fracture. Bridging osteophyte formation within the mid thoracic spine extending approximately 2 cm anterior fro m the vertebral column on lateral view Reviewed, dictated and finalized at location A. INVENTORY SPECIALIST IMPRESSION: No acute displaced left-sided rib fracture. Bridging osteophyte formation within the mid thoracic spine extending approxima tely 2 cm anterior from the vertebral column on lateral view
--- NOTE | ~2024-07-16 | XR_ITS ---
XR abdomen/kub 1V Ordering provider: Patricio Rzea PA-C History: . R07.81 - Pleurodynia . Comparison: The FINDINGS: BOWEL: Nonobstructive bowel gas pattern. ORGANOMEGALY: None. SIGNIFICANT PATHOLOGIC CALCIFICATIONS: None. OTHER: No free air is seen under the diaphragm. Degenerative changes of the spine. Bilateral sacroili itis spine. Bilateral hip osteoarthritic changes. Pubic symphysitis. IMPRESSION: NO ACUTE ABDOMINAL FINDINGS. Reviewed, dictated and finalized at location A. INEEDLE SHIRRER
[2024-07-16 13:37] LABS: Add Urine Microscopic? NO; Appearance Urine Clear (Clear); Bilirubin Urine Negative (Negative); Blood Urine Negative (Negative); Color Urine Yellow (Yellow); Glucose Urine UA Negative (Negative); Ketones Urine Negative (Negative); Leukocyte Esterase Ur Negative LEU/UL (Negative); Nitrate Urine Negative (Negative); Protein Urine Negative (Negative); Specific Grav Ur 1.006 (1.001-1.035); Urobilinogen Urine 0.2 mg/dL (<2.0)
== END 2024-07-16 12:29 | disposition home or self-care (01) ==
PROVIDERS: PCP Family Medicine; Visit Provider Physician Assistant
DX: R07.81 Pleurodynia (principal); R10.9 Unspecified abdominal pain; R35.0 Frequency of micturition
CPT/HCPCS: 71046; 71100; 74018; 81003